=== PATIENT | male | born 1935 | race Caucasian/White ===

== ENCOUNTER 2019-03-03 22:48 | Inpatient (IN) | payer BC, OTHER ==
[~2019-03-03] VITALS: Ht 154.9 cm; Wt 98.0 kg
[2019-03-03 22:48] VITALS: BP_SYST 138
[2019-03-03] MEDS ORDERED: DEXTROSE 50% JECT 50 ML DISP.SYRIN IVP ONE (23:00)
[2019-03-03] MEDS ORDERED: DEXTROSE 50% JECT 50 ML DISP.SYRIN ONE (23:12)
[2019-03-03] MEDS ORDERED: D5LR 1,000 ML IV ONE (23:30)
--- NOTE | 2019-03-03 23:30 | NUR ---
BOOGIE Roldan at bedside examining patient.
--- NOTE | 2019-03-03 23:30 | NUR ---
PT brought in by ambulance. Pt awake, alert, oriented x4. pt called 911 adter having episode of hypoglycemia, pt states his blood sugar was 45. Pt Was confused according to EMS, but presented to ED A/Ox4. Pt denies chest pain, nausea, vomiting, shortness of breath or any other complaint at this time. Pt VSS
--- NOTE | 2019-03-03 23:30 | NUR ---
Patient to ER bed 3 to gown for evaluation. Side rails up.
[2019-03-03 23:52] LABS: BASOPHILS % (AUTO) 0.6 % (0.0-2.0); EOSINOPHILS % (AUTO) 0.8 % (0.0-4.0); HEMATOCRIT 40.8 % (36-54); HEMOGLOBIN 13.2 g/dL (14.0-18.0); LYMPHOCYTES # (AUTO) 0.6 K/uL (1.0-5.5); LYMPHOCYTES % (AUTO) 10.6 % (20.5-51.5); MEAN CORPUSCULAR HEMOGLOBIN 30 pg (27-31); MEAN CORPUSCULAR HGB CONC 32 % (32-36); MEAN CORPUSCULAR VOLUME 94 fL (79.0-98.0); MONOCYTES # (AUTO) 0.4 K/uL (0.0-1.0); MONOCYTES % (AUTO) 7.6 % (1.7-9.3); NEUTROPHILS # (AUTO) 4.4 K/uL (1.8-7.7); NEUTROPHILS % (AUTO) 80.4 % (40.0-70.0); PLATELET COUNT (AUTO) 164 K/uL (130-430); RED BLOOD CELL COUNT(AUTO) 4.34 MIL/uL (4.2-6.2); RED CELL DISTRIBUTION WIDTH 15.4 % (9.0-15.0); WHITE BLOOD COUNT (AUTO) 5.5 K/uL (4.8-10.8)
[2019-03-04 00:08] LABS: ANION GAP 6 (5-15); CALCIUM 8.3 mg/dL (8.4-11.0); CHLORIDE 97 mmol/L (98-107); GLUCOSE 247 mg/dL (70-99); POTASSIUM 3.7 mmol/L (3.5-5.1); SODIUM SERUM 128 mmol/L (136-145); UREA NITROGEN, BLOOD 19 mg/dL (8-21)
--- NOTE | 2019-03-04 00:14 | NUR ---
Pt requested to call his neighbor "Xavi" and request that he feed his animals. [phone]. Left a message requesting callback
[2019-03-04 00:18] LABS: ALANINE AMINOTRANSFERASE 43 U/L (12-78); ALBUMIN 3.3 g/dL (3.4-4.8); ASPARTATE AMINOTRANSFERASE 45 U/L (10-37); TOTAL BILIRUBIN 0.3 mg/dL (0.0-1.0)
--- NOTE | 2019-03-04 01:00 | NUR ---
Pt Requested urinal, Pt voided 100ml
[2019-03-04 02:00] LABS: BILIRUBIN,URINE NEGATIVE (NEGATIVE); CLARITY/URINE CLEAR (CLEAR); COLOR,URINE YELLOW (YELLOW); GLUCOSE,URINE 2+ (NEGATIVE); KETONES,URINE NEGATIVE (NEGATIVE); LEUKOCYTE ESTERASE ,URINE NEGATIVE (NEGATIVE); NITRITE, URINE NEGATIVE (NEGATIVE); PH,URINE 5.5 (5.0-8.0); PROTEIN URINE NEGATIVE (NEGATIVE)
[2019-03-04 02:03] LABS: BLOOD, URINE TRACE (NEGATIVE)
--- NOTE | 2019-03-04 02:04 | NUR ---
pt resting in ED bed comfortably. No distress noted.
[2019-03-04] MEDS ORDERED: ONDANSETRON HCL 4 MG/2 ML VIAL IVP PRN (02:15)
[2019-03-04] MEDS ORDERED: MORPHINE 2 MG/ML INJ. SYRINGE IVP PRN ×2 (02:15)
[2019-03-04] MEDS ORDERED: ACETAMINOPHEN 325 MG TABLET PO PRN (02:15)
[2019-03-04] MEDS ORDERED: ALBUTEROL SULFATE 0.083% 2.5 MG/3 ML VIAL.NEB INH PRN (02:15)
[2019-03-04 02:32] VITALS: BP_SYST 136
[2019-03-04 02:54] LABS: BACTERIA,URINE FEW /HPF (None Seen); WBC,URINE 0-3 /HPF (0-3)
[2019-03-04 02:55] LABS: HYALINE CASTS, URINE 0-10 /LPF (None Seen)
[2019-03-04 02:56] LABS: FINE GRANULAR CASTS,URINE 0-10 /LPF (None Seen)
--- NOTE | 2019-03-04 03:33 | NUR ---
Pt resting in ED bed comfortably. No distress at this time.
--- NOTE | 2019-03-04 04:39 | NUR ---
Pt requested additional blanket. pt provided with blanket and bed adjustment.
--- NOTE | 2019-03-04 05:00 | NUR ---
Pt resting in ED bed. Vital signs stable, no acute distress at this time.
--- NOTE | 2019-03-04 05:10 | NUR ---
Pt requested to call his Friend/Neighbor again. Spoke to roopa. He stated he would come by to visit, get the keys do he could feed the animals
--- NOTE | 2019-03-04 05:30 | NUR ---
Lab Bedside performing draw
--- NOTE | 2019-03-04 06:25 | NUR ---
POC Fingerstick Glucose test performed. Blood glucose 170mg/dl
[2019-03-04 06:31] LABS: BASOPHILS % (AUTO) 0.3 % (0.0-2.0); EOSINOPHILS % (AUTO) 0.3 % (0.0-4.0); HEMATOCRIT 38.2 % (36-54); HEMOGLOBIN 12.5 g/dL (14.0-18.0); LYMPHOCYTES # (AUTO) 0.6 K/uL (1.0-5.5); MEAN CORPUSCULAR HEMOGLOBIN 31 pg (27-31); MEAN CORPUSCULAR HGB CONC 33 % (32-36); MEAN CORPUSCULAR VOLUME 94 fL (79.0-98.0); MONOCYTES # (AUTO) 0.5 K/uL (0.0-1.0); MONOCYTES % (AUTO) 12.7 % (1.7-9.3); NEUTROPHILS # (AUTO) 2.6 K/uL (1.8-7.7); NEUTROPHILS % (AUTO) 69.7 % (40.0-70.0); PLATELET COUNT (AUTO) 172 K/uL (130-430); RED BLOOD CELL COUNT(AUTO) 4.08 MIL/uL (4.2-6.2); RED CELL DISTRIBUTION WIDTH 15.2 % (9.0-15.0); WHITE BLOOD COUNT (AUTO) 3.7 K/uL (4.8-10.8)
[2019-03-04 06:34] LABS: ANION GAP 5 (5-15); CALCIUM 7.9 mg/dL (8.4-11.0); CHLORIDE 100 mmol/L (98-107); CREATININE 0.66 mg/dL (0.55-1.30); GLUCOSE 194 mg/dL (70-99); POTASSIUM 3.3 mmol/L (3.5-5.1); SODIUM SERUM 132 mmol/L (136-145); UREA NITROGEN, BLOOD 13 mg/dL (8-21)
[2019-03-04 06:49] LABS: ALANINE AMINOTRANSFERASE 38 U/L (12-78); ASPARTATE AMINOTRANSFERASE 36 U/L (10-37); TOTAL BILIRUBIN 0.3 mg/dL (0.0-1.0)
--- NOTE | 2019-03-04 07:08 | NUR ---
Lab Reported Critical Elevated Troponin 0.191. Spoke to . requested Echocardiogram and Consult with
--- NOTE | 2019-03-04 07:45 | NUR ---
Sybil guzman in [facility] - 03/04/19 at 0753 by [email or web address] Report Given to ANUSHA Black. All care assumed
--- NOTE | 2019-03-04 07:45 | NUR ---
Report Given to ANUSHA Black. All care endorsed.
--- NOTE | 2019-03-04 08:58 | NUR ---
Spoke w/ Dr. Flaherty made aware that the pt has been having unresolved slurred speech. MD ordered a stat CT of the head
--- NOTE | 2019-03-04 09:00 | NUR ---
Patient transported to radiology via CT, accompanied by joann.
--- NOTE | 2019-03-04 09:14 | NUR ---
pt returned from CT scan
--- NOTE | 2019-03-04 10:57 | NUR ---
unable to obtain home meds at the moment.
[2019-03-04] MEDS ORDERED: WARF5TAB2 PO (11:07)
--- NOTE | 2019-03-04 11:20 | NUR ---
Admission Note Received patient from ER with diagnosis of Hypoglycemia. Initial Plan of Care discussed with patient-patient verbalized his understanding. Family at bedside. Oriented to room, call light, pain management and safety.
--- NOTE | 2019-03-04 11:20 | NUR ---
Patient will be admitted to care of Dr. Flaherty. Admitted to tele unit. Will go to room 100-b. Belongings list completed. Complete and up to date summary report printed. Bedside report given to Anamaria TAVARES. IV is on the rac patent and infusing well.
[2019-03-04] MEDS ORDERED: ASPIRIN 325 MG TABLET (ECOTRIN) PO ONE (11:45)
--- NOTE | 2019-03-04 11:49 | NUR ---
CONSULT CARDIOLOGY ELEVATED TROPONIN DR VILLARREAL [phone] S/W [facility]
[2019-03-04 12:00] VITALS: BP_SYST 150
[2019-03-04 12:02] LABS: CHOLESTEROL 87 mg/dL (<200); HDL CHOLESTEROL 33 mg/dL (>45); LDL CHOLESTEROL 47 mg/dL (<100); TRIGLYCERIDES 37 mg/dL (30-150)
[2019-03-04] MEDS ORDERED: NACL 0.9% 1,000 ML IV SCH (12:26)
--- NOTE | 2019-03-04 13:59 | NUR ---
CONSULT ENDOCRINOLOGY HYPOGLYCEMIA DR GORDON [phone] S/W [facility]
[2019-03-04] MEDS ORDERED: POTASSIUM CHLORIDE 20 MEQ/PKT PACKET PO ONE (15:15)
--- NOTE | 2019-03-04 15:30 | NUR ---
ROUNDS/ Pt sitting up in bed visiting with his family, no s/s resp distress, no c/o pain or discomfort. Pt seen by Dr. Braden-new orders noted. Needs met, call light within reach.
--- NOTE | 2019-03-04 15:44 | NUR ---
Social Service Note: CAVING GUIDE met with pt, pt's step son, and daughter in law at bedside. Pt lives at home alone. Pt and pt's family both state that pt needs assistance at home with ADLs and things around the house. CAVING GUIDE provided pt's daughter in law with brochures for caregiving agencies and a card for Assisted Living Locators. Amanueldennis Farley-step son and Kenia Farley-daughter in law ([phone]) would like a call from the HCP director of casework for an update on the DC plan.
[2019-03-04 16:45] VITALS: BP_SYST 141
[2019-03-04] MEDS ORDERED: DIA250 PO (18:05)
[2019-03-04] MEDS ORDERED: GLU850 PO (18:05)
[2019-03-04] MEDS ORDERED: LISI10TA5 PO (18:05)
--- NOTE | 2019-03-04 18:45 | NUR ---
CLOSING NOTE Pt sitting up in bed visiting with his friends with no s/s resp distress, no c/o pain or discomfort. IVF infusing well to LAC at ordered rate with no s/s infiltration to site. Pt's medications entered into med rec-awaiting MD reconciliation. Side rails up x3, bed alarm on for safety. Call light within reach.
[2019-03-04 20:00] VITALS: BP_SYST 131
--- NOTE | 2019-03-04 20:00 | NUR ---
Initial note: Received report from britta RN. Patient is awake, sitting up in bed. Alert and oriented x4, no acute distress. IV fluids infusing well to left AC IV site, no infiltration. Call light is with patient. Safety, fall precautions in place. Will continue with plan of care.
--- NOTE | 2019-03-04 21:12 | NUR ---
Blood sugar: Patient's blood sugar is 177. No insulin coverage ordered for patient. Emptied 350 ML yellow urine from patient's urinal. Call light is with patient. Will continue monitoring.
[2019-03-04 21:27] LABS: INR 5.5 (0.80-1.20); PROTHROMBIN TIME 53.7 SECS (9.5-12.5)
--- NOTE | 2019-03-04 21:32 | NUR ---
PAGED I PAGED DR. VILLARREAL @ [phone] I SPOKE WITH ALLAN LIANG
--- NOTE | 2019-03-04 21:45 | NUR ---
DR. PHIL VILLARREAL CALLED BACK @ [phone]
--- NOTE | 2019-03-04 21:46 | NUR ---
Dr. Hilario: called back at this time, made aware regarding critical PT/INR. No new orders received.
[2019-03-04] MEDS ORDERED: DORZ10DR13 LEFT EYE (22:50)
[2019-03-04] MEDS ORDERED: ALPHAGAN1 LEFT EYE (22:50)
[2019-03-04] MEDS ORDERED: PREDEYE1% LEFT EYE (22:50)
[2019-03-04] MEDS ORDERED: NETA2.5D LEFT EYE (22:50)
--- NOTE | 2019-03-04 23:45 | NUR ---
Wound care: Patient has abrasions to bilateral knees. Photo documentation performed. Sites cleansed with NS, patted dry with sterile gauze, covered with nonadhesive dressing, secured with 2 inch paper tape. Call light with patient. Will continue to monitor.
[2019-03-05 00:06] VITALS: BP_SYST 134
--- NOTE | 2019-03-05 02:05 | NUR ---
Rounds: Patient woke up, used urinal. Able to void 300 ML yellow urine. No acute distress, no needs at this time. Call light with patient. Will continue to monitor.
--- NOTE | 2019-03-05 04:01 | NUR ---
Rounds: Patient is awake and used urinal at this time. Emptied 450 ML yellow urine from urinal. No acute distress, no needs at this time. Call light with patient. Will continue to monitor.
--- NOTE | 2019-03-05 06:38 | NUR ---
Closing note: Patient is resting in bed, no acute distress. Tolerating room air. IV fluids infusing per MD order, no infiltration. Blood sugar this AM was 173, no insulin coverage ordered. All needs met. Safety, fall, aspiration precautions observed. Hourly rounding performed throughout shift. Will endorse care to dayshift RN.
[2019-03-05 07:21] LABS: BASOPHILS % (AUTO) 0.4 % (0.0-2.0); EOSINOPHILS % (AUTO) 0.9 % (0.0-4.0); HEMATOCRIT 40.2 % (36-54); LYMPHOCYTES # (AUTO) 0.7 K/uL (1.0-5.5); LYMPHOCYTES % (AUTO) 15.5 % (20.5-51.5); MEAN CORPUSCULAR HEMOGLOBIN 30 pg (27-31); MEAN CORPUSCULAR HGB CONC 32 % (32-36); MEAN CORPUSCULAR VOLUME 94 fL (79.0-98.0); MONOCYTES # (AUTO) 0.4 K/uL (0.0-1.0); MONOCYTES % (AUTO) 9.4 % (1.7-9.3); NEUTROPHILS # (AUTO) 3.5 K/uL (1.8-7.7); NEUTROPHILS % (AUTO) 73.8 % (40.0-70.0); PLATELET COUNT (AUTO) 191 K/uL (130-430); RED BLOOD CELL COUNT(AUTO) 4.29 MIL/uL (4.2-6.2); RED CELL DISTRIBUTION WIDTH 15.1 % (9.0-15.0); WHITE BLOOD COUNT (AUTO) 4.7 K/uL (4.8-10.8)
[2019-03-05 07:45] VITALS: BP_SYST 147
[2019-03-05] MEDS: ASPIRIN 325 MG TABLET (ECOTRIN) PO SCH (08:04)
--- NOTE | 2019-03-05 08:05 | NUR ---
Routine Scheduled medication given per order. Patient eating breakfast while sitting on side of bed. No complaint of pain or discomfort. Patient stable at this time.
[2019-03-05 08:11] LABS: ALANINE AMINOTRANSFERASE 35 U/L (12-78); ALBUMIN 3.1 g/dL (3.4-4.8); ANION GAP 7 (5-15); ASPARTATE AMINOTRANSFERASE 31 U/L (10-37); CALCIUM 7.9 mg/dL (8.4-11.0); CHLORIDE 104 mmol/L (98-107); CREATININE 0.56 mg/dL (0.55-1.30); FREE T4 (FREE THYROXINE) 1.1 ng/dl (0.8-1.5); GLUCOSE 181 mg/dL (70-99); POTASSIUM 3.7 mmol/L (3.5-5.1); SODIUM SERUM 135 mmol/L (136-145); THYROID STIMULATING HORMONE 3.05 uIu/mL (0.36-3.74); TOTAL BILIRUBIN 0.3 mg/dL (0.0-1.0); UREA NITROGEN, BLOOD 8 mg/dL (8-21)
[2019-03-05 10:16] LABS: INR 3.9 (0.80-1.20); PROTHROMBIN TIME 38.7 SECS (9.5-12.5)
--- NOTE | 2019-03-05 11:45 | NUR ---
Routine Checked blood sugar: 201 mg/dl - will cover per sliding scale. Patient stable. Addendum: 03/05/19 at 1446 by Jacqueline Thao RN No sliding scale. Doctor was paged earlier for orders.
[2019-03-05 12:10] VITALS: BP_SYST 127
--- NOTE | 2019-03-05 14:00 | NUR ---
Routine Patient resting comfortably in bed with no distress noted and no complaint of any pain. Patient stable at this time.
--- NOTE | 2019-03-05 14:39 | NUR ---
Dietitian Recommendations * Recommend continuing [facility] diet LP, RD Please refer to Nutrition Assessment for details. Addendum: 03/05/19 at [address] Amended: Links added.
[2019-03-05] MEDS ORDERED: DORZOLAMIDE OP SCH (14:45)
[2019-03-05] MEDS ORDERED: TIMOLOL OP SCH (14:45)
--- NOTE | 2019-03-05 15:05 | NUR ---
Dietitian Recommendations * Recommend renal, [facility] diet LP, RD Please refer to Nutrition Assessment for details. Addendum: 03/05/19 at [address] Amended: Links added. Addendum: 03/05/19 at [address] PLEASE DISREGARD. ENTERED IN ERROR.
[2019-03-05] MEDS ORDERED: INSULIN REGULAR, HUMAN 100 UNITS/ML, 10 ML VIAL (humuLIN R) SUBCUT PRN (15:15)
[2019-03-05] MEDS ORDERED: DEXTROSE 50% JECT 50 ML DISP.SYRIN IVP PRN ×2 (15:15→16:15)
[2019-03-05] MEDS: NETARSUDIL SCH (15:21)
[2019-03-05] MEDS: PREDNISOLONE 1% SCH ×3 (15:21→23:35)
[2019-03-05] MEDS: ALPHAGAN P OP SCH ×2 (15:22→20:34)
--- NOTE | 2019-03-05 15:28 | NUR ---
Routine Scheduled medications (eye drops) given per order. Patient sitting on side of bed with sonEloy at bedside. Patient stable at this time.
[2019-03-05 16:45] VITALS: BP_SYST 158
--- NOTE | 2019-03-05 16:49 | NUR ---
Social Service Note: MANAGED SECURITY SALES CONSULTANT met with pt's family at bedside. They are asking for information on [facility]. MANAGED SECURITY SALES CONSULTANT has made the referral to Guille with [employer]. MANAGED SECURITY SALES CONSULTANT will follow up as needed.
--- NOTE | 2019-03-05 16:55 | NUR ---
Routine Checked blood sugar: 170 mg/dl - no coverage required. Patient resting comfortably in bed with son, daughter, and adoption social worker at bedside. Patient denies any pain. Patient stable at this time.
--- NOTE | 2019-03-05 18:24 | NUR ---
Routine Scheduled med given per order. Patient resting comfortably in bed with no complaint of pain. Patient stable throughout shift.
--- NOTE | 2019-03-05 19:42 | NUR ---
Initial note: Report received from britta RN. Patient is sitting up in bed speaking with friends at bedside. No acute distress. Even and unlabored breathing on room air. IV site to left AC is patent and benign. No needs at this time. Call light is with patient. Safety, fall, aspiration precautions in place. Will continue with plan of care.
[2019-03-05 20:22] VITALS: BP_SYST 135
[2019-03-05] MEDS: DORZOLAMIDE OP SCH (20:26)
[2019-03-05] MEDS: TIMOLOL OP SCH (20:26)
[2019-03-05] MEDS: INSULIN LISPRO SLIDING SCALE 100 UNITS/ML VIAL (humaLOG) SUBCUT PRN (20:34)
--- NOTE | 2019-03-05 20:40 | NUR ---
Blood sugar: Blood sugar is 236. Patient refused sliding scale Humalog insulin, stated that he hasn't taken insulin in a long time, and that he would like to see if it can decrease by itself by the morning. Patient agreed to receive insulin in the morning if his bloods sugar is still elevated. Will continue to monitor.
--- NOTE | 2019-03-05 23:32 | NUR ---
Rounds: Patient is awake, no acute distress. Tolerating room air. IV site patent and intact. Call light with patient. Will continue monitoring.
[2019-03-06 00:06] VITALS: BP_SYST 151
--- NOTE | 2019-03-06 02:11 | NUR ---
Rounds: Patient is awake, used urinal. This RN emptied 200 ML yellow urine. No acute distress, no other needs. Call light with patient. Will continue to monitor.
--- NOTE | 2019-03-06 04:02 | NUR ---
Wound care: Patient woke up and used urinal, emptied 100 ML yellow urine. Wound care and dressing change rendered for bilateral knee abrasions. Patient tolerated well. Call light with patient. Will continue monitoring.
[2019-03-06] MEDS: PREDNISOLONE 1% SCH ×3 (06:43→17:19)
[2019-03-06] MEDS: INSULIN LISPRO SLIDING SCALE 100 UNITS/ML VIAL (humaLOG) SUBCUT PRN ×2 (06:44→12:15)
--- NOTE | 2019-03-06 06:44 | NUR ---
Closing note: Patient is resting in bed, no acute distress, tolerating room air. Blood sugar this AM was 219, patient refused insulin again, stated he doesn't take insulin. All needs met. Safety, fall, aspiration precautions observed. Hourly rounding performed throughout shift. Will endorse care to dayshift RN.
[2019-03-06 08:15] VITALS: BP_SYST 145
[2019-03-06] MEDS: ASPIRIN 325 MG TABLET (ECOTRIN) PO SCH (08:57)
[2019-03-06] MEDS: NETARSUDIL SCH (08:58)
[2019-03-06] MEDS: TIMOLOL OP SCH (08:58)
[2019-03-06] MEDS: DORZOLAMIDE OP SCH (08:58)
[2019-03-06] MEDS: ALPHAGAN P OP SCH ×2 (08:58→14:35)
--- NOTE | 2019-03-06 09:00 | NUR ---
Routine Patient resting comfortably in bed at this time. Denies any pain. Scheduled medications given per order. Patient stable.
[2019-03-06 09:38] LABS: PROTHROMBIN TIME 20.3 SECS (9.5-12.5)
[2019-03-06 11:10] VITALS: BP_SYST 145
--- NOTE | 2019-03-06 11:46 | NUR ---
Routine Checked blood sugar: 213 mg/dl - will cover per sliding scale. Scheduled eye drops given as well. Patient sitting on side of bed with no distress noted. Patient stable. Addendum: 03/06/19 at 1216 by Jacqueline Thao RN Covered per sliding scale.
--- NOTE | 2019-03-06 13:42 | NUR ---
Routine Patient sitting on side of bed with no complaint of pain or discomfort. Patient stable at this time.
--- NOTE | 2019-03-06 13:56 | NUR ---
Placement: received call from Priyanka GARDINER CM. Accepted at [facility] room 213A. Call [phone]. [facility] on will call.
--- NOTE | 2019-03-06 14:36 | NUR ---
Routine Scheduled eye drops given. Patient sitting on side of bed; denies any pain at this time. Patient stable.
[2019-03-06 15:11] VITALS: BP_SYST 132
--- NOTE | 2019-03-06 15:11 | NUR ---
Ambulance: Pickup time will be 1700 hours. Spoke with Pedro at [facility]. [phone]
[2019-03-06 16:53] VITALS: BP_SYST 132
--- NOTE | 2019-03-06 17:00 | NUR ---
Called report Called report to Torito Vidales RN at [facility] [phone]. Patient will go to Room 213A.
--- NOTE | 2019-03-06 17:18 | NUR ---
Routine Checked blood sugar: 184 mg/dl. Transport at bedside to transfer patient to [facility]. Patient did not eat dinner; no coverage was given. Patient stable.
--- NOTE | 2019-03-06 17:28 | NUR ---
Discharge Patient transferred in stable condition via ambulance to [facility]. accompanied by step-daughter and grandson.
== END 2019-03-06 17:30 | DRG 637 ==
LOC: SED 22:48 → STU 03-04 01:54
PROVIDERS: ADMIT Internal Medicine Hospice and Palliative Medicine; ATTEND Internal Medicine Hospice and Palliative Medicine
DX: E11.649 Type 2 diabetes mellitus with hypoglycemia without coma (principal); G93.41 Metabolic encephalopathy; I24.8 Other forms of acute ischemic heart disease; I48.20 Chronic atrial fibrillation, unspecified; R47.01 Aphasia; E87.1 Hypo-osmolality and hyponatremia; I10 Essential (primary) hypertension; I25.10 Atherosclerotic heart disease of native coronary artery without angina pectoris; I27.20 Pulmonary hypertension, unspecified; Z60.2 Problems related to living alone; T38.3X5A Adverse effect of insulin and oral hypoglycemic [antidiabetic] drugs, initial encounter; W18.39XA Other fall on same level, initial encounter; Y93.89 Activity, other specified; Y92.89 Other specified places as the place of occurrence of the external cause; Y99.8 Other external cause status; Z79.01 Long term (current) use of anticoagulants; Z79.4 Long term (current) use of insulin; Z86.73 Personal history of transient ischemic attack (TIA), and cerebral infarction without residual deficits; Z98.41 Cataract extraction status, right eye; Z79.82 Long term (current) use of aspirin; Z79.899 Other long term (current) drug therapy
CPT/HCPCS: 36415; 70450-TC; 71045; 80053; 80061; 81000-TC; 82962; 83036; 83605; 83880; 84439; 84443-TC; 84484; 85025; 85610-TC; 87040-TC; 87086; 93005; 93306; 96361; 96374; 99285; G0378; J7030; J7120

== ENCOUNTER 2019-03-24 12:31 | Emergency (ER) | payer BC ==
[~2019-03-24] VITALS: Ht 165.1 cm; Wt 81.6 kg
[~2019-03-24 12:31] MED LIST: ALPHAGAN1 LEFT EYE; DIA250 PO; DORZ10DR13 LEFT EYE; LISI10TA5 PO; NETA2.5D LEFT EYE; PREDEYE1% LEFT EYE; WARF5TAB2 PO
[2019-03-24 12:44] VITALS: BP_SYST 152
[2019-03-24] MEDS ORDERED: NACL 0.9% 1,000 ML IV ONE (12:47)
[2019-03-24 13:42] LABS: BASOPHILS % (AUTO) 0.6 % (0.0-2.0); EOSINOPHILS # (AUTO) 0.1 K/uL (0.0-0.4); HEMATOCRIT 41.1 % (36-54); HEMOGLOBIN 13.3 g/dL (14.0-18.0); LYMPHOCYTES # (AUTO) 0.6 K/uL (1.0-5.5); LYMPHOCYTES % (AUTO) 16.1 % (20.5-51.5); MEAN CORPUSCULAR HEMOGLOBIN 30 pg (27-31); MEAN CORPUSCULAR HGB CONC 32 % (32-36); MEAN CORPUSCULAR VOLUME 92 fL (79.0-98.0); MONOCYTES # (AUTO) 0.3 K/uL (0.0-1.0); MONOCYTES % (AUTO) 8.1 % (1.7-9.3); NEUTROPHILS # (AUTO) 2.9 K/uL (1.8-7.7); NEUTROPHILS % (AUTO) 73.2 % (40.0-70.0); PLATELET COUNT (AUTO) 220 K/uL (130-430); RED BLOOD CELL COUNT(AUTO) 4.46 MIL/uL (4.2-6.2); RED CELL DISTRIBUTION WIDTH 15.5 % (9.0-15.0)
[2019-03-24 13:53] LABS: ANION GAP 8 (5-15); CHLORIDE 97 mmol/L (98-107); CREATININE 0.58 mg/dL (0.55-1.30); GLUCOSE 220 mg/dL (70-99); POTASSIUM 4.1 mmol/L (3.5-5.1); SODIUM SERUM 136 mmol/L (136-145); UREA NITROGEN, BLOOD 8 mg/dL (8-21)
[2019-03-24 13:58] LABS: INR 1.3 (0.80-1.20); PROTHROMBIN TIME 13.4 SECS (9.5-12.5)
[2019-03-24 14:00] LABS: ALANINE AMINOTRANSFERASE 26 U/L (12-78); ALBUMIN 3.5 g/dL (3.4-4.8); AMYLASE 43 U/L (0-100); ASPARTATE AMINOTRANSFERASE 29 U/L (10-37); LIPASE 160 U/L (73-393); TOTAL BILIRUBIN 0.6 mg/dL (0.0-1.0)
[2019-03-24 15:22] VITALS: BP_SYST 155
[2019-03-24 15:29] LABS: BILIRUBIN,URINE NEGATIVE (NEGATIVE); CLARITY/URINE CLEAR (CLEAR); COLOR,URINE YELLOW (YELLOW); GLUCOSE,URINE NEGATIVE (NEGATIVE); KETONES,URINE NEGATIVE (NEGATIVE); LEUKOCYTE ESTERASE ,URINE NEGATIVE (NEGATIVE); NITRITE, URINE NEGATIVE (NEGATIVE); PH,URINE 6.5 (5.0-8.0); PROTEIN URINE NEGATIVE (NEGATIVE); UROBILINOGEN,URINE 0.2 (0.2-1.0)
[2019-03-24 15:36] LABS: BLOOD, URINE TRACE (NEGATIVE)
== END 2019-03-24 15:22 | disposition home or self-care (01) ==
LOC: SED 12:31
DX: R55 Syncope and collapse (principal); E11.9 Type 2 diabetes mellitus without complications; I50.9 Heart failure, unspecified; I48.91 Unspecified atrial fibrillation; Z79.899 Other long term (current) drug therapy
CPT/HCPCS: 36415; 71045; 80053; 81003; 82150-TC; 82550-TC; 82962; 83605; 83690-TC; 83880; 84484; 85025; 85610-TC; 85730-TC; 87040-TC; 93005; 99284

== ENCOUNTER 2019-08-23 10:47 | Emergency (ER) | payer BC ==
[~2019-08-23] VITALS: Ht 160 cm; Wt 83.9 kg
[2019-08-23 10:56] VITALS: BP_SYST 144
--- NOTE | 2019-08-23 11:01 | NUR ---
Patient triaged and placed in waiting room. VSS and patient appears in no acute distress at this time. Awaiting available bed, and MD notified of need for MSE.
--- NOTE | 2019-08-23 11:20 | NUR ---
Patient to ER bed 2 to gown for evaluation. Side rails up.
--- NOTE | 2019-08-23 11:30 | NUR ---
DR KNIGHT IN TO ASSESS
--- NOTE | 2019-08-23 12:15 | NUR ---
CALM, ALERT, RESP UNLABORED, SKIN WARM AND DRY. COMMUNICATES CLEARLY IN FULL COMPLETE SENTENCES, DENEIS CP/SOB. C/O RECENT EPISODES OF FAINTING BRIEFLY THEN WAKING WITH NO INDICATION OF WHAT HAD HAPPENED
[2019-08-23 12:28] LABS: BASOPHILS % (AUTO) 0.2 % (0.0-2.0); EOSINOPHILS # (AUTO) 0.1 K/uL (0.0-0.4); EOSINOPHILS % (AUTO) 1.1 % (0.0-4.0); HEMATOCRIT 41.7 % (36-54); HEMOGLOBIN 13.4 g/dL (14.0-18.0); LYMPHOCYTES # (AUTO) 0.7 K/uL (1.0-5.5); LYMPHOCYTES % (AUTO) 13.3 % (20.5-51.5); MEAN CORPUSCULAR HEMOGLOBIN 30 pg (27-31); MEAN CORPUSCULAR HGB CONC 32 % (32-36); MEAN CORPUSCULAR VOLUME 92 fL (79.0-98.0); MONOCYTES # (AUTO) 0.6 K/uL (0.0-1.0); MONOCYTES % (AUTO) 10.2 % (1.7-9.3); NEUTROPHILS # (AUTO) 4.2 K/uL (1.8-7.7); NEUTROPHILS % (AUTO) 75.2 % (40.0-70.0); PLATELET COUNT (AUTO) 177 K/uL (130-430); RED BLOOD CELL COUNT(AUTO) 4.52 MIL/uL (4.2-6.2); RED CELL DISTRIBUTION WIDTH 15.1 % (9.0-15.0); WHITE BLOOD COUNT (AUTO) 5.6 K/uL (4.8-10.8)
[2019-08-23 12:39] LABS: ANION GAP 2 (5-15); CALCIUM 9.8 mg/dL (8.4-11.0); CHLORIDE 104 mmol/L (98-107); CREATININE 0.82 mg/dL (0.55-1.30); GLUCOSE 180 mg/dL (70-99); POTASSIUM 4.3 mmol/L (3.5-5.1); SODIUM SERUM 138 mmol/L (136-145); UREA NITROGEN, BLOOD 20 mg/dL (8-21)
[2019-08-23 12:45] LABS: ALANINE AMINOTRANSFERASE 58 U/L (12-78); ALBUMIN 3.5 g/dL (3.4-4.8); ASPARTATE AMINOTRANSFERASE 32 U/L (10-37); TOTAL BILIRUBIN 0.7 mg/dL (0.0-1.0)
[2019-08-23 12:50] LABS: INR 2.2 (0.80-1.20); PROTHROMBIN TIME 21.6 SECS (9.5-12.5)
[2019-08-23 15:00] VITALS: BP_SYST 139
--- NOTE | 2019-08-23 15:05 | NUR ---
Patient given written and verbal discharge instructions and verbalizes understanding. ER MD discussed with patient the results and treatment provided. Patient in stable condition. ID arm band removed. IV catheter removed intact and dressing applied, no active bleeding. Patient educated on pain management and to follow up with PMD. Pain Scale Opportunity for questions provided and answered. Medication side effect fact sheet provided.
== END 2019-08-23 15:00 | disposition home or self-care (01) ==
LOC: SED 10:47
DX: R55 Syncope and collapse (principal)
CPT/HCPCS: 36415; 70450-TC; 71045; 80053; 82550-TC; 84484; 85025; 85610-TC; 85730-TC; 93005; 99285

== ENCOUNTER 2020-01-10 12:55 | Emergency (ER) | payer BC ==
[~2020-01-10] VITALS: Ht 167.6 cm; Wt 59.0 kg
[2020-01-10 13:07] VITALS: BP_SYST 142
--- NOTE | 2020-01-10 13:10 | NUR ---
AMNBULATED TO BED 8
--- NOTE | 2020-01-10 13:20 | NUR ---
patient brought by family, cc of syncopal episode this morning and hit the head at the sink. pt a/a/ox4, denies headache, lightheaded or blurred vision. vss, afebrile. telemonitor placed. bed is low and lock position. assessment done.
--- NOTE | 2020-01-10 13:30 | NUR ---
ER at bedside examining patient.
[2020-01-10 13:57] LABS: BASOPHILS # (AUTO) 0.1 K/uL (0.0-0.2); BASOPHILS % (AUTO) 2.3 % (0.0-2.0); EOSINOPHILS # (AUTO) 0.1 K/uL (0.0-0.4); EOSINOPHILS % (AUTO) 0.8 % (0.0-4.0); HEMATOCRIT 39.1 % (36-54); HEMOGLOBIN 12.9 g/dL (14.0-18.0); LYMPHOCYTES # (AUTO) 0.4 K/uL (1.0-5.5); LYMPHOCYTES % (AUTO) 6.7 % (20.5-51.5); MEAN CORPUSCULAR HEMOGLOBIN 31 pg (27-31); MEAN CORPUSCULAR HGB CONC 33 % (32-36); MEAN CORPUSCULAR VOLUME 94 fL (79.0-98.0); MONOCYTES # (AUTO) 0.4 K/uL (0.0-1.0); MONOCYTES % (AUTO) 5.9 % (1.7-9.3); NEUTROPHILS # (AUTO) 5.2 K/uL (1.8-7.7); NEUTROPHILS % (AUTO) 84.3 % (40.0-70.0); PLATELET COUNT (AUTO) 250 K/uL (130-430); RED BLOOD CELL COUNT(AUTO) 4.14 MIL/uL (4.2-6.2); RED CELL DISTRIBUTION WIDTH 14.3 % (9.0-15.0); WHITE BLOOD COUNT (AUTO) 6.2 K/uL (4.8-10.8)
[2020-01-10 14:05] LABS: ANION GAP 7 (5-15); CHLORIDE 101 mmol/L (98-107); CREATININE 0.68 mg/dL (0.55-1.30); GLUCOSE 196 mg/dL (70-99); POTASSIUM 4.8 mmol/L (3.5-5.1); SODIUM SERUM 136 mmol/L (136-145); UREA NITROGEN, BLOOD 17 mg/dL (8-21)
[2020-01-10 14:06] LABS: INR 2.5 (0.80-1.20); PROTHROMBIN TIME 25.2 SECS (9.5-12.5)
[2020-01-10 14:15] LABS: ALANINE AMINOTRANSFERASE 29 U/L (12-78); ALBUMIN 3.6 g/dL (3.4-4.8); ALCOHOL, BLOOD < 3 mg/dL (<10); ASPARTATE AMINOTRANSFERASE 23 U/L (10-37); FREE T4 (FREE THYROXINE) 1.2 ng/dl (0.8-1.5); TOTAL BILIRUBIN 0.5 mg/dL (0.0-1.0)
[2020-01-10 14:56] LABS: BILIRUBIN,URINE NEGATIVE (NEGATIVE); BLOOD, URINE 2+ (NEGATIVE); CLARITY/URINE CLEAR (CLEAR); COLOR,URINE YELLOW (YELLOW); GLUCOSE,URINE NEGATIVE (NEGATIVE); KETONES,URINE NEGATIVE (NEGATIVE); LEUKOCYTE ESTERASE ,URINE NEGATIVE (NEGATIVE); NITRITE, URINE NEGATIVE (NEGATIVE); PH,URINE 6.5 (5.0-8.0); PROTEIN URINE 1+ (NEGATIVE); UROBILINOGEN,URINE 0.2 (0.2-1.0)
--- NOTE | 2020-01-10 15:00 | NUR ---
patient requested food. meal provided.
[2020-01-10 15:17] LABS: BARBITURATE, URINE NEGATIVE (NEG <=200); BENZODIAZEPINE, URINE NEGATIVE (NEG <=150); CANNABINOID, URINE NEGATIVE (NEG <=50); COCAINE, URINE NEGATIVE (NEG <=150); METHAMPHETAMINES SCREEN,URINE NEGATIVE (NEG <=500); OPIATE, URINE NEGATIVE (NEG <=100); PHENCYCLIDINE SCREEN,URINE NEGATIVE (NEG <=25); UR TRICYCLIC ANTIDEPRESSANTS NEGATIVE (NEG <=300); URINE AMPHETAMINE NEGATIVE (NEG <=500); URINE METHADONE NEGATIVE (NEG <=200); URINE OXYCODONE SCREEN NEGATIVE (NEG <=100); URINE PROPOXYPHENE SCREEN NEGATIVE (NEG <=300)
[2020-01-10 15:26] LABS: BACTERIA,URINE None Seen /HPF (None Seen); RBC,URINE 20-50 /HPF (0-3); WBC,URINE 0-3 /HPF (0-3)
[2020-01-10 15:27] LABS: MUCUS,URINE None Seen /LPF (None Seen)
[2020-01-10 17:05] VITALS: BP_SYST 135
--- NOTE | 2020-01-10 17:05 | NUR ---
Patient does not wish to proceed with medical care recommended by . Patient given information related to possible complications, up to and including , which could occur as a result of leaving hospital at this time. Patient verbalizes understanding of risks involved leaving against medical advice. Patient has signed AMA form.
== END 2020-01-10 17:05 | disposition left against medical advice (07) ==
LOC: SED 12:55
DX: S09.90XA Unspecified injury of head, initial encounter (principal); I48.91 Unspecified atrial fibrillation; R55 Syncope and collapse; I10 Essential (primary) hypertension; E11.9 Type 2 diabetes mellitus without complications; E78.5 Hyperlipidemia, unspecified; Z79.899 Other long term (current) drug therapy; W22.8XXA Striking against or struck by other objects, initial encounter; Y93.89 Activity, other specified; Y92.89 Other specified places as the place of occurrence of the external cause; Y99.8 Other external cause status
CPT/HCPCS: 36415; 70450; 71045; 74018; 76376; 80053; 80307; 81000; 82140; 83605; 83880; 84439; 84484; 85025; 85610; 87040; 93005; 93970; 99285; G0482

== ENCOUNTER 2020-01-31 20:08 | Inpatient (IN) | payer BC, SELFPAY ==
[~2020-01-31] VITALS: Ht 160 cm; Wt 71.2 kg
[2020-01-31 20:20] VITALS: BP_SYST 146
[2020-01-31 21:34] LABS: BASOPHILS % (AUTO) 0.4 % (0.0-2.0); EOSINOPHILS % (AUTO) 0.7 % (0.0-4.0); HEMATOCRIT 38.2 % (36-54); HEMOGLOBIN 12.8 g/dL (14.0-18.0); LYMPHOCYTES # (AUTO) 0.9 K/uL (1.0-5.5); LYMPHOCYTES % (AUTO) 14.1 % (20.5-51.5); MEAN CORPUSCULAR HEMOGLOBIN 31 pg (27-31); MEAN CORPUSCULAR HGB CONC 34 % (32-36); MEAN CORPUSCULAR VOLUME 93 fL (79.0-98.0); MONOCYTES # (AUTO) 0.6 K/uL (0.0-1.0); NEUTROPHILS # (AUTO) 4.8 K/uL (1.8-7.7); NEUTROPHILS % (AUTO) 74.8 % (40.0-70.0); PLATELET COUNT (AUTO) 197 K/uL (130-430); RED CELL DISTRIBUTION WIDTH 14.6 % (9.0-15.0); WHITE BLOOD COUNT (AUTO) 6.4 K/uL (4.8-10.8)
[2020-01-31 21:46] LABS: ANION GAP 5 (5-15); CALCIUM 9.4 mg/dL (8.4-11.0); CHLORIDE 101 mmol/L (98-107); CREATININE 1.09 mg/dL (0.55-1.30); GLUCOSE 213 mg/dL (70-99); SODIUM SERUM 136 mmol/L (136-145); UREA NITROGEN, BLOOD 27 mg/dL (8-21)
[2020-01-31 21:53] LABS: POTASSIUM 6.4 mmol/L (3.5-5.1)
[2020-01-31 21:55] LABS: ALANINE AMINOTRANSFERASE 35 U/L (12-78); ALBUMIN 3.7 g/dL (3.4-4.8); ASPARTATE AMINOTRANSFERASE 32 U/L (10-37); TOTAL BILIRUBIN 0.4 mg/dL (0.0-1.0)
[2020-01-31] MEDS ORDERED: SODIUM POLYSTYRENE SULFONATE 15 GM/60 ML UDBTL PO ONE (23:00)
[2020-01-31] MEDS ORDERED: SODIUM POLYSTYRENE SULFONATE 15 GM/60 ML UDBTL ONE (23:41)
[2020-02-01] MEDS ORDERED: ONDANSETRON HCL 4 MG/2 ML VIAL IVP PRN (08:15)
[2020-02-01] MEDS ORDERED: NALOXONE HCL 0.4 MG/ML AMP (NARCAN) IVP PRN ×2 (08:15)
[2020-02-01] MEDS ORDERED: HYDROcodone/ACETAMIN 5-325 MG TAB (NORCO/ VICODIN) PO PRN (08:15)
[2020-02-01] MEDS ORDERED: HYDROcodone/ACETAMIN 10-325 MG TAB PO PRN (08:15)
[2020-02-01] MEDS ORDERED: LORazepam 2 MG/ML VIAL IVP PRN (08:15)
[2020-02-01] MEDS ORDERED: ACETAMINOPHEN 325 MG TABLET PO PRN (08:15)
[2020-02-01] MEDS ORDERED: LISINOPRIL 10 MG TABLET (PRINIVIL) PO SCH (09:00)
[2020-02-01] MEDS ORDERED: ONDANSETRON HCL 4 MG/2 ML VIAL IM PRN (09:30)
[2020-02-01] MEDS: acetaZOLAMIDE 250 MG TABLET (DIAMOX) PO SCH ×2 (09:57→20:09)
[2020-02-01] MEDS: prednisoLONE 1% OPHTHALMIC SUSPN 5 ML OP SCH ×4 (09:58→20:09)
[2020-02-01] MEDS: BRIMONIDINE TARTRATE 0.2% 5 mL EYE DROPS LEFT EYE SCH ×3 (09:58→20:09)
[2020-02-01] MEDS: DORZOLAMIDE HCL/TIMOLOL MAL. 10 ML EYE DROPS (COSOPT) LEFT EYE SCH ×2 (09:59→20:09)
[2020-02-01 10:25] LABS: BASOPHILS % (AUTO) 0.5 % (0.0-2.0); EOSINOPHILS % (AUTO) 0.4 % (0.0-4.0); HEMATOCRIT 39.9 % (36-54); HEMOGLOBIN 13.2 g/dL (14.0-18.0); LYMPHOCYTES # (AUTO) 0.8 K/uL (1.0-5.5); LYMPHOCYTES % (AUTO) 15.1 % (20.5-51.5); MEAN CORPUSCULAR HEMOGLOBIN 31 pg (27-31); MEAN CORPUSCULAR HGB CONC 33 % (32-36); MEAN CORPUSCULAR VOLUME 94 fL (79.0-98.0); MONOCYTES # (AUTO) 0.6 K/uL (0.0-1.0); MONOCYTES % (AUTO) 10.3 % (1.7-9.3); NEUTROPHILS % (AUTO) 73.7 % (40.0-70.0); PLATELET COUNT (AUTO) 188 K/uL (130-430); RED BLOOD CELL COUNT(AUTO) 4.26 MIL/uL (4.2-6.2); RED CELL DISTRIBUTION WIDTH 14.7 % (9.0-15.0); WHITE BLOOD COUNT (AUTO) 5.4 K/uL (4.8-10.8)
[2020-02-01 10:49] LABS: ANION GAP 9 (5-15); CHLORIDE 102 mmol/L (98-107); CREATININE 0.81 mg/dL (0.55-1.30); GLUCOSE 191 mg/dL (70-99); POTASSIUM 4.7 mmol/L (3.5-5.1); SODIUM SERUM 139 mmol/L (136-145); UREA NITROGEN, BLOOD 20 mg/dL (8-21)
[2020-02-01 10:54] LABS: ALANINE AMINOTRANSFERASE 31 U/L (12-78); ALBUMIN 3.7 g/dL (3.4-4.8); ASPARTATE AMINOTRANSFERASE 22 U/L (10-37); TOTAL BILIRUBIN 0.6 mg/dL (0.0-1.0)
[2020-02-01 10:55] LABS: PROTHROMBIN TIME 20.4 SECS (9.5-12.5)
[2020-02-01] MEDS: cefTRIAXone 1 GM in D5W 50 ML IV SCH (12:00)
[2020-02-01] MEDS ORDERED: ALBUTEROL SULFATE 0.083% 2.5 MG/3 ML VIAL.NEB INH PRN (12:15)
[2020-02-01 12:36] VITALS: BP_SYST 137
[2020-02-01 16:11] VITALS: BP_SYST 117
[2020-02-01] MEDS: INSULIN LISPRO SLIDING SCALE 100 UNITS/ML VIAL (humaLOG) SUBCUT PRN (17:42)
[2020-02-01] MEDS: WARFARIN SODIUM 5 MG TABLET PO SCH (17:45)
[2020-02-01 20:00] VITALS: BP_SYST 117
[2020-02-01] MEDS: FUROSEMIDE 20 MG/2 ML VIAL IVP SCH (20:14)
[2020-02-02 00:32] VITALS: BP_SYST 113
[2020-02-02 07:41] LABS: BASOPHILS # (AUTO) 0.1 K/uL (0.0-0.2); BASOPHILS % (AUTO) 1.1 % (0.0-2.0); EOSINOPHILS # (AUTO) 0.1 K/uL (0.0-0.4); EOSINOPHILS % (AUTO) 1.2 % (0.0-4.0); HEMOGLOBIN 12.5 g/dL (14.0-18.0); LYMPHOCYTES # (AUTO) 0.9 K/uL (1.0-5.5); LYMPHOCYTES % (AUTO) 17.8 % (20.5-51.5); MEAN CORPUSCULAR HEMOGLOBIN 31 pg (27-31); MEAN CORPUSCULAR HGB CONC 33 % (32-36); MEAN CORPUSCULAR VOLUME 94 fL (79.0-98.0); MONOCYTES # (AUTO) 0.5 K/uL (0.0-1.0); MONOCYTES % (AUTO) 9.4 % (1.7-9.3); NEUTROPHILS # (AUTO) 3.6 K/uL (1.8-7.7); NEUTROPHILS % (AUTO) 70.5 % (40.0-70.0); PLATELET COUNT (AUTO) 174 K/uL (130-430); RED BLOOD CELL COUNT(AUTO) 4.04 MIL/uL (4.2-6.2); RED CELL DISTRIBUTION WIDTH 14.2 % (9.0-15.0); WHITE BLOOD COUNT (AUTO) 5.1 K/uL (4.8-10.8)
[2020-02-02 08:10] VITALS: BP_SYST 124
[2020-02-02] MEDS ORDERED: MULT-1117 PO (08:26)
[2020-02-02] MEDS ORDERED: FURO-150 PO (08:26)
[2020-02-02] MEDS ORDERED: ALBMDI INH (08:26)
[2020-02-02] MEDS ORDERED: METO25TA6 PO (08:26)
[2020-02-02] MEDS ORDERED: LIP10 PO (08:31)
[2020-02-02 08:42] LABS: INR 2.1 (0.80-1.20); PROTHROMBIN TIME 21.2 SECS (9.5-12.5)
[2020-02-02 09:28] LABS: ALANINE AMINOTRANSFERASE 31 U/L (12-78); ALBUMIN 3.2 g/dL (3.4-4.8); ASPARTATE AMINOTRANSFERASE 24 U/L (10-37); CALCIUM 8.7 mg/dL (8.4-11.0); CHLORIDE 102 mmol/L (98-107); GLUCOSE 167 mg/dL (70-99); PHOSPHORUS 3.7 mg/dL (2.7-4.5); POTASSIUM 3.4 mmol/L (3.5-5.1); SODIUM SERUM 138 mmol/L (136-145); TOTAL BILIRUBIN 0.4 mg/dL (0.0-1.0); UREA NITROGEN, BLOOD 23 mg/dL (8-21)
[2020-02-02] MEDS: FUROSEMIDE 20 MG/2 ML VIAL IVP SCH ×2 (09:32→20:37)
[2020-02-02] MEDS: ASPIRIN 81 MG TABLET(ECOTRIN) PO SCH (09:32)
[2020-02-02] MEDS: FAMOTIDINE 20 MG TABLET PO SCH (09:32)
[2020-02-02] MEDS: acetaZOLAMIDE 250 MG TABLET (DIAMOX) PO SCH ×2 (09:33→20:34)
[2020-02-02] MEDS: NITROGLYCERIN 0.2 MG/HR PATCH.TD24 TD SCH (09:34)
[2020-02-02] MEDS: DORZOLAMIDE HCL/TIMOLOL MAL. 10 ML EYE DROPS (COSOPT) LEFT EYE SCH ×2 (09:34→20:39)
[2020-02-02] MEDS: prednisoLONE 1% OPHTHALMIC SUSPN 5 ML OP SCH ×4 (09:34→20:39)
[2020-02-02] MEDS: BRIMONIDINE TARTRATE 0.2% 5 mL EYE DROPS LEFT EYE SCH ×3 (09:35→20:38)
[2020-02-02 09:56] LABS: ANION GAP 13 (5-15)
[2020-02-02] MEDS: cefTRIAXone 1 GM in D5W 50 ML IV SCH (11:23)
[2020-02-02] MEDS: INSULIN LISPRO SLIDING SCALE 100 UNITS/ML VIAL (humaLOG) SUBCUT PRN ×3 (11:27→21:25)
[2020-02-02 12:03] VITALS: BP_SYST 112
[2020-02-02 16:02] VITALS: BP_SYST 114
[2020-02-02] MEDS: WARFARIN SODIUM 5 MG TABLET PO SCH (17:25)
[2020-02-02 20:00] VITALS: BP_SYST 124
[2020-02-03] VITALS: BP_SYST 107
[2020-02-03] MEDS: INSULIN LISPRO SLIDING SCALE 100 UNITS/ML VIAL (humaLOG) SUBCUT PRN ×2 (06:08→18:09)
[2020-02-03 08:00] VITALS: BP_SYST 107
[2020-02-03] MEDS ORDERED: IOHEXOL 350 mgI/mL, 150 ML INFUS..BTL IV ONE (09:24)
[2020-02-03] MEDS: FUROSEMIDE 20 MG/2 ML VIAL IVP SCH ×2 (09:33→21:00)
[2020-02-03] MEDS: FAMOTIDINE 20 MG TABLET PO SCH (09:33)
[2020-02-03] MEDS: ASPIRIN 81 MG TABLET(ECOTRIN) PO SCH (09:34)
[2020-02-03] MEDS: acetaZOLAMIDE 250 MG TABLET (DIAMOX) PO SCH ×2 (09:35→21:48)
[2020-02-03] MEDS: NITROGLYCERIN 0.2 MG/HR PATCH.TD24 TD SCH (09:39)
[2020-02-03] MEDS: DORZOLAMIDE HCL/TIMOLOL MAL. 10 ML EYE DROPS (COSOPT) LEFT EYE SCH ×2 (10:31→21:48)
[2020-02-03] MEDS: prednisoLONE 1% OPHTHALMIC SUSPN 5 ML OP SCH ×4 (10:31→21:48)
[2020-02-03] MEDS: BRIMONIDINE TARTRATE 0.2% 5 mL EYE DROPS LEFT EYE SCH ×3 (10:31→21:48)
[2020-02-03] MEDS ORDERED: ALBUTEROL SULFATE 0.083% 2.5 MG/3 ML VIAL.NEB INH PRN (11:00)
[2020-02-03] MEDS: cefTRIAXone 1 GM in D5W 50 ML IV SCH (11:46)
[2020-02-03 12:00] VITALS: BP_SYST 110
[2020-02-03 16:00] VITALS: BP_SYST 104; BP_SYST 109
[2020-02-03] MEDS: WARFARIN SODIUM 5 MG TABLET PO SCH (17:11)
[2020-02-03] MEDS ORDERED: POTASSIUM CHLORIDE 20 MEQ in NS 250 ML IV ONE (19:15)
[2020-02-03 20:00] VITALS: BP_SYST 102
[2020-02-04] VITALS: BP_SYST 106
[2020-02-04] MEDS: INSULIN LISPRO SLIDING SCALE 100 UNITS/ML VIAL (humaLOG) SUBCUT PRN ×3 (06:22→17:15)
[2020-02-04 07:03] LABS: INR 2.3 (0.80-1.20)
[2020-02-04 08:00] VITALS: BP_SYST 112
[2020-02-04] MEDS: PATIENT'S OWN EENT INH SCH (09:00)
[2020-02-04] MEDS: ASPIRIN 81 MG TABLET(ECOTRIN) PO SCH (09:34)
[2020-02-04] MEDS: FAMOTIDINE 20 MG TABLET PO SCH (09:34)
[2020-02-04] MEDS: NITROGLYCERIN 0.2 MG/HR PATCH.TD24 TD SCH (09:35)
[2020-02-04] MEDS: FUROSEMIDE 20 MG/2 ML VIAL IVP SCH ×2 (09:36→21:00)
[2020-02-04] MEDS: acetaZOLAMIDE 250 MG TABLET (DIAMOX) PO SCH ×2 (09:36→21:00)
[2020-02-04] MEDS: prednisoLONE 1% OPHTHALMIC SUSPN 5 ML OP SCH ×4 (09:55→22:36)
[2020-02-04] MEDS: DORZOLAMIDE HCL/TIMOLOL MAL. 10 ML EYE DROPS (COSOPT) LEFT EYE SCH ×2 (09:56→22:35)
[2020-02-04] MEDS: BRIMONIDINE TARTRATE 0.2% 5 mL EYE DROPS LEFT EYE SCH ×3 (09:56→22:36)
[2020-02-04 11:30] VITALS: BP_SYST 107
[2020-02-04] MEDS: cefTRIAXone 1 GM in D5W 50 ML IV SCH (12:54)
[2020-02-04 16:44] VITALS: BP_SYST 95
[2020-02-04 16:50] VITALS: BP_SYST 95
[2020-02-04] MEDS: WARFARIN SODIUM 5 MG TABLET PO SCH (18:59)
[2020-02-04 20:35] VITALS: BP_SYST 105
[2020-02-05] VITALS: BP_SYST 92
[2020-02-05] MEDS: INSULIN LISPRO SLIDING SCALE 100 UNITS/ML VIAL (humaLOG) SUBCUT PRN ×2 (01:33→06:08)
[2020-02-05 06:25] LABS: BASOPHILS % (AUTO) 0.6 % (0.0-2.0); EOSINOPHILS % (AUTO) 1.2 % (0.0-4.0); HEMATOCRIT 36.2 % (36-54); LYMPHOCYTES # (AUTO) 0.7 K/uL (1.0-5.5); LYMPHOCYTES % (AUTO) 15.8 % (20.5-51.5); MEAN CORPUSCULAR HEMOGLOBIN 31 pg (27-31); MEAN CORPUSCULAR HGB CONC 33 % (32-36); MEAN CORPUSCULAR VOLUME 93 fL (79.0-98.0); MONOCYTES # (AUTO) 0.5 K/uL (0.0-1.0); MONOCYTES % (AUTO) 11.9 % (1.7-9.3); NEUTROPHILS % (AUTO) 70.5 % (40.0-70.0); PLATELET COUNT (AUTO) 178 K/uL (130-430); RED BLOOD CELL COUNT(AUTO) 3.88 MIL/uL (4.2-6.2); RED CELL DISTRIBUTION WIDTH 14.6 % (9.0-15.0); WHITE BLOOD COUNT (AUTO) 4.2 K/uL (4.8-10.8)
[2020-02-05 06:51] LABS: INR 2.6 (0.80-1.20); PROTHROMBIN TIME 25.5 SECS (9.5-12.5)
[2020-02-05 07:18] LABS: ALANINE AMINOTRANSFERASE 37 U/L (12-78); ALBUMIN 3.1 g/dL (3.4-4.8); ANION GAP 12 (5-15); ASPARTATE AMINOTRANSFERASE 21 U/L (10-37); CALCIUM 8.5 mg/dL (8.4-11.0); CHLORIDE 103 mmol/L (98-107); CREATININE 0.81 mg/dL (0.55-1.30); GLUCOSE 190 mg/dL (70-99); SODIUM SERUM 138 mmol/L (136-145); TOTAL BILIRUBIN 0.3 mg/dL (0.0-1.0); UREA NITROGEN, BLOOD 31 mg/dL (8-21)
[2020-02-05 08:00] VITALS: BP_SYST 126
[2020-02-05 08:38] LABS: POTASSIUM 2.7 mmol/L (3.5-5.1)
[2020-02-05] MEDS: PATIENT'S OWN EENT INH SCH (08:42)
[2020-02-05] MEDS: ASPIRIN 81 MG TABLET(ECOTRIN) PO SCH (08:45)
[2020-02-05] MEDS: NITROGLYCERIN 0.2 MG/HR PATCH.TD24 TD SCH (08:45)
[2020-02-05] MEDS: FAMOTIDINE 20 MG TABLET PO SCH (08:45)
[2020-02-05] MEDS: BRIMONIDINE TARTRATE 0.2% 5 mL EYE DROPS LEFT EYE SCH (08:46)
[2020-02-05] MEDS: prednisoLONE 1% OPHTHALMIC SUSPN 5 ML OP SCH (08:46)
[2020-02-05] MEDS: acetaZOLAMIDE 250 MG TABLET (DIAMOX) PO SCH (08:46)
[2020-02-05] MEDS: DORZOLAMIDE HCL/TIMOLOL MAL. 10 ML EYE DROPS (COSOPT) LEFT EYE SCH (08:47)
[2020-02-05] MEDS: FUROSEMIDE 20 MG/2 ML VIAL IVP SCH (08:49)
[2020-02-05] MEDS ORDERED: POTASSIUM CHLORIDE 40 MEQ in NS 250 ML IV ONE (09:00)
[2020-02-05] MEDS ORDERED: POTASSIUM CHLORIDE 20 MEQ TAB.PRT.SR PO ONE (09:00)
[2020-02-05 12:43] VITALS: BP_SYST 98
[2020-02-05 15:01] VITALS: BP_SYST 108
[2020-02-05 16:11] VITALS: BP_SYST 108
== END 2020-02-05 17:05 | disposition home or self-care (01) | DRG 292 ==
LOC: SED 20:08 → STU 02-01 05:40
PROVIDERS: ADMIT Internal Medicine Hospice and Palliative Medicine; ATTEND Internal Medicine Hospice and Palliative Medicine
DX: I11.0 Hypertensive heart disease with heart failure (principal); N17.9 Acute kidney failure, unspecified; I48.20 Chronic atrial fibrillation, unspecified; E87.5 Hyperkalemia; E11.51 Type 2 diabetes mellitus with diabetic peripheral angiopathy without gangrene; I70.0 Atherosclerosis of aorta; Z20.828 Contact with and (suspected) exposure to other viral communicable diseases; E78.5 Hyperlipidemia, unspecified; H40.9 Unspecified glaucoma; I77.810 Thoracic aortic ectasia; J44.9 Chronic obstructive pulmonary disease, unspecified; Z79.01 Long term (current) use of anticoagulants; Z86.73 Personal history of transient ischemic attack (TIA), and cerebral infarction without residual deficits; Z79.899 Other long term (current) drug therapy; I50.33 Acute on chronic diastolic (congestive) heart failure
CPT/HCPCS: 36415; 70450-TC; 70498; 71045; 76376; 80048; 80053; 82962; 83036; 83735-TC; 83880; 84100-TC; 84484; 85025; 85610-TC; 93005; 93306; 93880; 99285; G0378; J0696; J1940; J3480; J7050; J7060; Q9967

== ENCOUNTER 2020-03-05 08:36 | Inpatient (IN) | payer BC, SELFPAY ==
[~2020-03-05] VITALS: Ht 154.9 cm; Wt 61.2 kg
[~2020-03-05 08:36] MED LIST changes: +ALBMDI INH; +FURO-150 PO; +LIP10 PO; +METO25TA6 PO; +MULT-1117 PO
[2020-03-05 09:14] VITALS: BP_SYST 120
[2020-03-05] MEDS ORDERED: ATROPINE SULFATE 1 MG/10 ML SYRINGE IVP ONE ×3 (09:30→10:30)
[2020-03-05] MEDS ORDERED: NS 250 ML IV ONE (10:30)
[2020-03-05] MEDS ORDERED: CALCIUM CHLORIDE 1 GM/10 ML DISP.SYRIN (14 mEq Ca++/SYR) IVP ONE (10:30)
[2020-03-05] MEDS ORDERED: NOREPINEPHRINE BITARTRATE 4 MG in NS 246 ML IV ONE (10:45)
[2020-03-05] MEDS ORDERED: DOPamine PREMIX 250 ML IV ONE ×4 (10:45→16:05)
[2020-03-05] MEDS ORDERED: CALCIUM CHLORIDE 1 GM/10 ML DISP.SYRIN (14 mEq Ca++/SYR) ONE (11:01)
[2020-03-05] MEDS ORDERED: ONDANSETRON HCL 4 MG/2 ML VIAL ONE (11:09)
[2020-03-05 11:15] LABS: WHITE BLOOD COUNT (AUTO) 5.6 K/uL (4.8-10.8)
[2020-03-05] MEDS ORDERED: ONDANSETRON HCL 4 MG/2 ML VIAL IVP ONE (11:15)
[2020-03-05 11:23] LABS: BASOPHILS % (AUTO) 0.3 % (0.0-2.0); HEMATOCRIT 42.4 % (36-54); LYMPHOCYTES % (AUTO) 17.8 % (20.5-51.5); MEAN CORPUSCULAR HEMOGLOBIN 31 pg (27-31); MEAN CORPUSCULAR HGB CONC 33 % (32-36); MEAN CORPUSCULAR VOLUME 94 fL (79.0-98.0); MONOCYTES # (AUTO) 0.5 K/uL (0.0-1.0); MONOCYTES % (AUTO) 8.3 % (1.7-9.3); NEUTROPHILS # (AUTO) 4.1 K/uL (1.8-7.7); NEUTROPHILS % (AUTO) 73.6 % (40.0-70.0); PLATELET COUNT (AUTO) 262 K/uL (130-430); RED BLOOD CELL COUNT(AUTO) 4.54 MIL/uL (4.2-6.2); RED CELL DISTRIBUTION WIDTH 15.3 % (9.0-15.0)
[2020-03-05 11:25] LABS: ANION GAP 18 (5-15); CALCIUM 9.3 mg/dL (8.4-11.0); CHLORIDE 99 mmol/L (98-107); CREATININE 2.07 mg/dL (0.55-1.30); GLUCOSE 241 mg/dL (70-99); POTASSIUM 5.2 mmol/L (3.5-5.1); SODIUM SERUM 140 mmol/L (136-145); UREA NITROGEN, BLOOD 41 mg/dL (8-21)
[2020-03-05 11:31] LABS: ALANINE AMINOTRANSFERASE 258 U/L (12-78); ALBUMIN 3.8 g/dL (3.4-4.8); ASPARTATE AMINOTRANSFERASE 329 U/L (10-37); TOTAL BILIRUBIN 0.9 mg/dL (0.0-1.0)
[2020-03-05 11:40] LABS: INR 3.7 (0.80-1.20); PROTHROMBIN TIME 37.1 SECS (9.5-12.5)
[2020-03-05] MEDS ORDERED: IPRATROPIUM BROM 0.5 MG/2.5 ML VIAL.NEB (ATROVENT) INH PRN (15:30)
[2020-03-05] MEDS ORDERED: ALBUTEROL SULFATE 0.083% 2.5 MG/3 ML VIAL.NEB INH PRN (15:30)
[2020-03-05] MEDS ORDERED: NACL 0.9% 1,000 ML IV SCH (15:30)
[2020-03-05 16:25] VITALS: BP_SYST 156
[2020-03-05 17:00] VITALS: BP_SYST 154
[2020-03-05] MEDS ORDERED: AZITHROMYCIN 500 MG in NS 250 ML IV SCH (17:00)
[2020-03-05] MEDS ORDERED: DOPamine PREMIX 250 ML IV PRN (17:15)
[2020-03-05] MEDS ORDERED: cefTRIAXone 1 GM in D5W 50 ML IV SCH (18:00)
[2020-03-05] MEDS ORDERED: ALBUTEROL SULFATE 0.083% 2.5 MG/3 ML VIAL.NEB INH SCH (19:00)
[2020-03-05] MEDS ORDERED: IPRATROPIUM BROM 0.5 MG/2.5 ML VIAL.NEB (ATROVENT) INH SCH (19:00)
[2020-03-05] MEDS ORDERED: NOREPINEPHRINE BITARTRATE 4 MG in D5W 246 ML IV PRN (21:15)
[2020-03-05] MEDS ORDERED: IPRATROPIUM/ALBUTEROL SULFATE 3 ML AMPUL.NEB (DUONEB) INH SCH (23:00)
[2020-03-05] MEDS ORDERED: NOREPINEPHRINE 4 MG/4 ML VIAL IV ONE (23:29)
[2020-03-06] MEDS ORDERED: NOREPINEPHRINE 4 MG/4 ML VIAL IV ONE (00:12)
[2020-03-06] MEDS ORDERED: methylPREDNISolone SOD SUCC 40 MG/ML VIAL IVP SCH (09:00)
== END 2020-03-06 01:10 | disposition expired | DRG 308 ==
LOC: SED 08:36 → SIC 11:47
PROVIDERS: ADMIT Internal Medicine Hospice and Palliative Medicine; ATTEND Internal Medicine Hospice and Palliative Medicine
DX: I49.8 Other specified cardiac arrhythmias (principal); J96.01 Acute respiratory failure with hypoxia; N17.9 Acute kidney failure, unspecified; I11.0 Hypertensive heart disease with heart failure; I48.20 Chronic atrial fibrillation, unspecified; J44.9 Chronic obstructive pulmonary disease, unspecified; Z66 Do not resuscitate; I50.9 Heart failure, unspecified; E78.5 Hyperlipidemia, unspecified; L98.9 Disorder of the skin and subcutaneous tissue, unspecified; R23.0 Cyanosis; E11.9 Type 2 diabetes mellitus without complications; F03.90 Unspecified dementia, unspecified severity, without behavioral disturbance, psychotic disturbance, mood disturbance, and anxiety; Z20.822 Contact with and (suspected) exposure to COVID-19; T50.995A Adverse effect of other drugs, medicaments and biological substances, initial encounter; Z79.01 Long term (current) use of anticoagulants; Z79.899 Other long term (current) drug therapy; Z86.73 Personal history of transient ischemic attack (TIA), and cerebral infarction without residual deficits; Y92.89 Other specified places as the place of occurrence of the external cause
CPT/HCPCS: 36415; 36600; 71045; 80053; 82803-TC; 82962; 83880; 84484; 85025; 85379; 85610-TC; 85730-TC; 93005; 96374; 96375; 96376; 99291; J0456; J0461; J0696; J1265; J2405; J7050; J7060; J7613